=== PATIENT | male | born 1950 | race Caucasian/White ===

== ENCOUNTER 2024-10-11 09:49 | Emergency (ER) | payer MEDICARE, BC ==
[~2024-10-11] VITALS: Ht 180.3 cm; Wt 145.6 kg
[~2024-10-11 09:49] MED LIST: CEFUROXIME500 MG PO; DOXYCYCLINE HY100 MG PO; FLOMAX0.4 MG PO; LISINOPRIL10 MG PO; PYRIDIUM200 MG PO
[2024-10-11 09:54] VITALS: PULSE 79; RESP 20; TEMP 98.3; O2SAT 94
[2024-10-11] MEDS ORDERED: AMOXICILLIN500 MG PO (10:13)
[2024-10-11] MEDS ORDERED: VENTOLIN HFA18 GM INH (10:13)
[2024-10-11] MEDS ORDERED: CORICIDIN HBP1 EAC3 PO (10:14)
== END 2024-10-11 10:20 | disposition home or self-care (01) ==
LOC: FSED 09:53
DX: R05.9 Cough, unspecified (principal); J20.9 Acute bronchitis, unspecified; I10 Essential (primary) hypertension; E78.5 Hyperlipidemia, unspecified; M54.9 Dorsalgia, unspecified; G89.29 Other chronic pain; F17.210 Nicotine dependence, cigarettes, uncomplicated
CPT/HCPCS: 99284

== ENCOUNTER 2024-10-18 09:02 | Emergency (ER) | payer MEDICARE, BC ==
[~2024-10-18] VITALS: Ht 180.3 cm; Wt 144.8 kg
[~2024-10-18 09:02] MED LIST changes: +AMOXICILLIN500 MG PO; +CORICIDIN HBP1 EAC3 PO; +VENTOLIN HFA18 GM INH
[2024-10-18] MEDS ORDERED: PROBIOTIC & AC1 EACH PO (09:32)
[2024-10-18] MEDS ORDERED: AZITHROMYCIN250 MG PO (09:32)
[2024-10-18 09:56] VITALS: PULSE 81; RESP 20; TEMP 98; O2SAT 99
[2024-10-18] MEDS ORDERED: CARVEDILOL12.5 MG PO (10:18)
[2024-10-18] MEDS ORDERED: HYDROCHLOROTH12.5 MG PO (10:18)
[2024-10-18] MEDS ORDERED: ASPIRIN EC81 MG PO (10:18)
== END 2024-10-18 09:56 | disposition home or self-care (01) ==
LOC: FSED 09:07
DX: R05.9 Cough, unspecified (principal); J20.9 Acute bronchitis, unspecified; I10 Essential (primary) hypertension; E78.5 Hyperlipidemia, unspecified; I25.10 Atherosclerotic heart disease of native coronary artery without angina pectoris; E66.9 Obesity, unspecified; M54.9 Dorsalgia, unspecified; G89.29 Other chronic pain
CPT/HCPCS: 71046; 99283